=== PATIENT | male | born 1935 | race Caucasian/White ===

== ENCOUNTER 2016-10-08 | Emergency (ER) | payer MEDICARE, BC ==
[~2016-10-08] VITALS: Ht 177.8 cm; Wt 91.2 kg
[2016-10-09] MEDS ORDERED: ASPIRIN325 MG PO (05:02)
[2016-10-09] MEDS ORDERED: CALTRATE 600 WI1 TAB PO (05:02)
[2016-10-09] MEDS ORDERED: FISH OIL1 GM PO (05:02)
[2016-10-09] MEDS ORDERED: CENTRUM SILVER1 EAC1 PO (05:03)
[2016-10-09] MEDS ORDERED: PRAVACHOL20 MG PO (05:05)
== END 2016-10-09 03:37 | disposition short-term general hospital (02) ==
DX: T17.228A Food in pharynx causing other injury, initial encounter (principal); R13.10 Dysphagia, unspecified; E78.5 Hyperlipidemia, unspecified; Z79.82 Long term (current) use of aspirin; Z79.899 Other long term (current) drug therapy; Z88.2 Allergy status to sulfonamides; Z88.8 Allergy status to other drugs, medicaments and biological substances
CPT/HCPCS: A9270